=== PATIENT | female | born 1950 | race Caucasian/White ===

== ENCOUNTER 2016-05-06 13:44 | Emergency (ER) | payer MEDICARE, MEDICAID ==
[~2016-05-06] VITALS: Ht 152.4 cm; Wt 45.4 kg
[~2016-05-06 13:44] MED LIST: "\\\"BP MED\\\""; HYDR12.55 PO
[2016-05-06] MEDS ORDERED: IV NS 0.9% 500 ML IV ONE (13:55)
[2016-05-06] MEDS ORDERED: IV SET PRIMARY 1 EA INFUS.SET MC ONE ×2 (13:55→15:44)
[2016-05-06] MEDS ORDERED: IV NS 0.9% 500 ML BAG IV ONE (14:00)
[2016-05-06 14:11] LABS: BASOPHILS % (AUTO) 0.1 % (0.0-2.0); DIFF TOTAL % 100 %; EOSINOPHILS % (AUTO) 0.1 % (0.0-6.0); HEMATOCRIT 31 % (33-45); HEMOGLOBIN 10.9 g/dL (11.5-14.8); LYMPHOCYTES % (AUTO) 5.3 % (20.0-44.0); MEAN CORPUSCULAR HEMOGLOBIN 33 PG (26.0-33.0); MEAN CORPUSCULAR HGB CONC 35 g/dl (31.0-36.0); MEAN CORPUSCULAR VOLUME 97 fL (82-100); MONOCYTES # (AUTO) 1.3 /CMM (0.1-1.30); MONOCYTES % (AUTO) 7.1 % (2.0-12.0); NEUTROPHILS % (AUTO) 87.4 % (43.0-81.0); PLATELET COUNT (AUTO) 215 /CMM (150-450); RED BLOOD CELL COUNT(AUTO) 3.26 MIL/uL (4.0-5.2); WHITE BLOOD COUNT (AUTO) 18.3 K/uL (4.3-11.0)
[2016-05-06 14:20] LABS: ANION GAP 18 (5-14); CALCIUM, SERUM 8.3 mg/dL (8.5-10.1); CARBON DIOXIDE 21 mmol/L (21-32); CHLORIDE 102 mmol/L (98-107); CREATININE 1.7 mg/dL (0.6-1.3); GFR 30 mL/min (>60); GLUCOSE 84 mg/dL (74-106); POTASSIUM 3.9 mmol/L (3.5-5.1); SODIUM SERUM 137 mmol/L (136-145); UREA NITROGEN, BLOOD 42 mg/dL (7-18)
[2016-05-06 14:26] LABS: INR 0.89 (0.87-1.13); PROTHROMBIN TIME 9.3 SECS (9.5-12.7)
[2016-05-06 14:27] LABS: ACETAMINOPHEN < 10 ug/ml (10-30); ALANINE AMINOTRANSFERASE 15 U/L (12-78); ALBUMIN 2.8 g/dL (3.4-5.0); ASPARTATE AMINOTRANSFERASE 22 U/L (15-37); BILIRUBIN,DIRECT 0.1 mg/dL (0.0-0.2); BILIRUBIN,TOTAL 0.2 mg/dL (0.2-1.0); INDIRECT BILIRUBIN 0.1 mg/dL (0.0-1.1); SALICYLATE 1.2 mg/dL (2.8-20.0); TOTAL PROTEIN, SERUM 6.2 g/dL (6.4-8.2); TROPONIN I < 0.017 ng/mL (0.00-0.056)
[2016-05-06 14:49] LABS: THYROID STIMULATING HORMONE 0.152 uIU/mL (0.358-3.74)
[2016-05-06 15:28] LABS: LACTIC ACID 3.2 mmol/L (0.4-2.0)
[2016-05-06 15:39] LABS: *LACTIC ACID REFLEX FLAG YES
[2016-05-06] MEDS ORDERED: IV NS 0.9% 1,000 ML ONE (15:44)
[2016-05-06 15:57] LABS: ADD UA MICROSCOPIC NO; KETONES,URINE NEGATIVE (NEGATIVE); LEUKOCYTE ESTERASE ,URINE NEGATIVE (NEGATIVE); PH,URINE 5.5 (5.0-8.0)
[2016-05-06] MEDS ORDERED: IV NS 0.9% 1,000 ML BAG IV ONE (16:00)
[2016-05-06 16:39] LABS: CANNABINOID, URINE NEGATIVE (NEGATIVE); PHENCYCLIDINE SCREEN,URINE NEGATIVE (NEGATIVE)
[2016-05-06 18:21] VITALS: BP 141/84
[2016-05-06] MEDS ORDERED: ONDANSETRON HCL/PF 4 MG/2 ML VIAL ONE (18:56)
[2016-05-06] MEDS ORDERED: ONDANSETRON HCL/PF - ER 4 MG/2 ML VIAL IV ONE (22:00)
== END 2016-05-06 18:55 ==
LOC: ER 13:45
DX: T51.91XA Toxic effect of unspecified alcohol, accidental (unintentional), initial encounter (principal); I10 Essential (primary) hypertension; F32.9 Major depressive disorder, single episode, unspecified; F10.10 Alcohol abuse, uncomplicated; Y92.9 Unspecified place or not applicable; R79.1 Abnormal coagulation profile
CPT/HCPCS: 36415; 71010-TC; 80048-TC; 80076-TC; 80305; 81000-TC; 83605-TC; 84443-TC; 84484-TC; 85025-TC; 85730-TC; A4606; G6038-TC; G6039-TC; G6040-TC; J2405; J7030; J7040; Z7610

== ENCOUNTER 2019-09-24 19:15 | Emergency (ER) | payer OTHER ==
[~2019-09-24] VITALS: Ht 152.4 cm; Wt 52.6 kg
--- NOTE | 2019-09-24 19:15 | NUR ---
Note undone in EDM - 09/24/19 at 1945 by EVICTOR pt [id number]. ambulatory. bibself c/o L shoulder pain s/p fell yesterday. placed on monitor and pulse ox. md at bedside for eval. no acute distress noted. rr even and unlabored. awaiting md for orders.
--- NOTE | 2019-09-24 19:15 | NUR ---
pt [id number]. ambulatory. bibself c/o R shoulder pain s/p fell yesterday. placed on monitor and pulse ox. md at bedside for eval. no acute distress noted. rr even and unlabored. awaiting md for orders.
[2019-09-24] MEDS ORDERED: FENTANYL PF 100MCG/2ML AMPUL IV ONE (19:30)
[2019-09-24] MEDS ORDERED: FENTANYL PF 100MCG/2ML AMPUL ONE (19:33)
--- NOTE | 2019-09-24 19:37 | NUR ---
xray at bedside
[2019-09-24] MEDS ORDERED: ONDANSETRON HCL/PF 4 MG/2 ML VIAL ONE (20:25)
[2019-09-24] MEDS ORDERED: MORPHINE SULFATE INJ 4 MG/ML DISP.SYRIN ONE (20:26)
[2019-09-24] MEDS ORDERED: ONDANSETRON HCL/PF 4 MG/2 ML VIAL IV ONE (20:30)
[2019-09-24] MEDS ORDERED: MORPHINE SULFATE INJ 2 MG/ML DISP.SYRIN IV ONE (20:30)
--- NOTE | 2019-09-24 20:56 | NUR ---
IV removed. Catheter intact and site benign. Pressure and 4x4 applied to site. No bleeding noted.
--- NOTE | 2019-09-24 20:56 | NUR ---
Patient discharged to home in stable condition. Written and verbal after care instructions given. Patient verbalizes understanding of instruction and RX. Pt picked up by luba. VSS. Ambulated with steady gait.
[2019-09-24 21:07] VITALS: BP 138/76
== END 2019-09-24 21:07 | disposition home or self-care (01) ==
LOC: ER 19:18
DX: S42.211A Unspecified displaced fracture of surgical neck of right humerus, initial encounter for closed fracture (principal); I10 Essential (primary) hypertension; F32.9 Major depressive disorder, single episode, unspecified; G89.29 Other chronic pain; Z79.899 Other long term (current) drug therapy; W01.0XXA Fall on same level from slipping, tripping and stumbling without subsequent striking against object, initial encounter; Y93.89 Activity, other specified; Y92.89 Other specified places as the place of occurrence of the external cause; Y99.8 Other external cause status
CPT/HCPCS: 73030; 96374; 96375; 99284; J2270; J2405; J3010

== ENCOUNTER 2020-09-21 09:23 | Inpatient (IN) | payer OTHER ==
[~2020-09-21] VITALS: Ht 152.4 cm; Wt 46.3 kg
--- NOTE | 2020-09-21 09:23 | NUR ---
PT BIBRA 102 FROM HOME C/O ETOH "COUPLE OF BOTTLES OF VODKA ON SCENE" PT IS AAOX3, NOT IN RESPIRATORY DISTRESS, HOOKED TO DATA CENTER MANAGER, KEPT RESTED AND COMFORTABLE. WILL CONTINUE TO MONITOR.
--- NOTE | 2020-09-21 09:30 | NUR ---
THE PATIENT IS PROVIDED WITH BREAKFAST.
--- NOTE | 2020-09-21 09:57 | NUR ---
SEEN AND EXAMINED BY .
[2020-09-21 10:12] LABS: BASOPHILS # (AUTO) 0.1 /CMM (0.0-0.2); BASOPHILS % (AUTO) 1.7 % (0.0-2.0); EOSINOPHILS % (AUTO) 0.6 % (0.0-6.0); HEMATOCRIT 33 % (33-45); HEMOGLOBIN 10.4 g/dL (11.5-14.8); LYMPHOCYTES # (AUTO) 2.1 /CMM (0.8-4.8); MEAN CORPUSCULAR HGB CONC 31 g/dl (31.0-36.0); MEAN CORPUSCULAR VOLUME 88 fL (82-100); MONOCYTES # (AUTO) 0.2 /CMM (0.1-1.30); MONOCYTES % (AUTO) 4.9 % (2.0-12.0); NEUTROPHILS # (AUTO) 2.3 /CMM (1.8-8.9); NEUTROPHILS % (AUTO) 47.8 % (43.0-81.0); PLATELET COUNT (AUTO) 235 /CMM (150-450); RED BLOOD CELL COUNT(AUTO) 3.77 MIL/uL (4.0-5.2); WHITE BLOOD COUNT (AUTO) 4.8 K/uL (4.3-11.0)
[2020-09-21 10:19] LABS: CARBON DIOXIDE 22 mmol/L (21-32); CHLORIDE 105 mmol/L (98-107); GLUCOSE 92 mg/dL (74-106); POTASSIUM 3.7 mmol/L (3.5-5.1); SODIUM SERUM 145 mmol/L (136-145); UREA NITROGEN, BLOOD 12 mg/dL (7-18)
--- NOTE | 2020-09-21 10:22 | NUR ---
CLOSE FRIEND SHARON GOEL, LEFT CONTACT # [phone]
[2020-09-21 10:26] LABS: ALANINE AMINOTRANSFERASE 33 U/L (12-78); ALBUMIN 3.3 g/dL (3.4-5.0); ALCOHOL, BLOOD 407 mg/dL (0-0); ALKALINE PHOSPHATASE 149 U/L (46-116); ASPARTATE AMINOTRANSFERASE 51 U/L (15-37); BILIRUBIN,DIRECT 0.1 mg/dL (0.0-0.2); BILIRUBIN,TOTAL 0.3 mg/dL (0.2-1.0); CALCIUM, SERUM 8.3 mg/dL (8.5-10.1); TOTAL PROTEIN, SERUM 7.4 g/dL (6.4-8.2)
[2020-09-21 10:27] LABS: ACETAMINOPHEN < 0 ug/ml (10-30)
--- NOTE | 2020-09-21 10:37 | NUR ---
FRIEND SHARON SPOKE TO DR PRIETO REGARDING PT PLAN OF CARE.
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
--- NOTE | 2020-09-21 12:00 | NUR ---
THE PATIENT IS PROVIDED WITH LUNCH. THE PATIENT TOLERATED PROVIDED FOOD WELL.
--- NOTE | 2020-09-21 13:54 | NUR ---
URINE COLLECTED AND SENT TO THE LAB
[2020-09-21 14:13] LABS: BILIRUBIN,URINE Negative (NEGATIVE); COLOR,URINE YELLOW (YELLOW); LEUKOCYTE ESTERASE ,URINE Trace (NEGATIVE); NITRITE, URINE Negative (NEGATIVE); PROTEIN,URINE 100 mg/dl (NEGATIVE); UGLUCOSE Negative (NEGATIVE); UROBILINOGEN,URINE 0.2 EU/dL (0.2)
[2020-09-21 14:17] LABS: BACTERIA,URINE None seen /HPF (None Seen); HYALINE CASTS, URINE Few /LPF (None Seen); RBC,URINE 0-2 /HPF (0-2); SQUAMOUS EPITHELIAL CELL,UR Few /HPF (None Seen)
--- NOTE | 2020-09-21 15:00 | NUR ---
THE PATIENT ALERT AND ORIENTED X2. DENIES PAIN. IN ROOM AIR AND DENIES SOB. RESPIRATION REGULAR AND UNLABORED. WILL CONTINUE TO MONITOR THE PATIENT.
--- NOTE | 2020-09-21 16:05 | NUR ---
CLEMENTE RN AT BEDSIDE FOR PSYCH EVAL.
[2020-09-21] MEDS ORDERED: CEPHALEXIN MONOHYDRATE 500 MG CAPSULE PO ONE (17:06)
[2020-09-21] MEDS: CEPHALEXIN MONOHYDRATE 500 MG CAPSULE PO SCH (17:09)
[2020-09-21] MEDS ORDERED: TRAZ-257 PO (18:22)
[2020-09-21] MEDS ORDERED: OMEP20CA15 PO (18:22)
[2020-09-21] MEDS ORDERED: GABA-532 PO (18:22)
[2020-09-21] MEDS ORDERED: FERR325T24 PO (18:22)
[2020-09-21] MEDS ORDERED: BENA20TA9 PO (18:22)
[2020-09-21] MEDS ORDERED: METO-357 PO (18:22)
--- NOTE | 2020-09-21 19:37 | NUR ---
ATTEMPTED TO GIVE REPORT TO STAFF, UNABLE TO GIVE REPORT. STAFF IS BUSY.
--- NOTE | 2020-09-21 19:45 | NUR ---
REPORT GIVEN TO FAA RN FOR ANGEL. STAFF STATES THAT THE ROOM NEEDS TO BE CLEANED BY EVS BEFORE PATIENT CAN BE SENT UP.
[2020-09-21] MEDS ORDERED: MAG HYDROX/AL HYDROX/SIMETH 30 ML UDC PO PRN (21:30)
[2020-09-21] MEDS ORDERED: ACETAMINOPHEN 325 MG TABLET PO PRN (21:30)
[2020-09-21] MEDS ORDERED: MAGNESIUM HYDROXIDE 30 ML UDC PO PRN (21:30)
[2020-09-21] MEDS ORDERED: BLOOD SUGAR DIAGNOSTIC 1 EACH STRIP IN ONE (21:30)
[2020-09-21] MEDS: ZOLPIDEM TARTRATE 5 MG TABLET PO PRN (21:46)
[2020-09-21] MEDS: LORAZEPAM 0.5 MG TABLET PO PRN (22:34)
[2020-09-22 00:06] VITALS: BP 191/118
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
[2020-09-22] MEDS ORDERED: BENAZEPRIL HCL 20 MG TABLET PO STA (02:43)
[2020-09-22] MEDS ORDERED: METOPROLOL TARTRATE 50 MG TABLET PO STA (02:43)
--- NOTE | 2020-09-22 02:59 | NUR ---
GPS RN NOTE - BP PATIENT NOTED WITH BP 186/95 AND P OF [address]. DR. CAST ORDERED: -METOPROLOL 50MG PO ONCE STAT -HYDRALAZINE 20MG PO ONCE STAT ADMINISTERED MEDICATION AND WILL CONTINUE TO MONITOR PATIENT'S BP -HYDRALAZINE 25MG PO PRN EVERY 6 HOURS FOR SBP > 150. ORDER NOTED AND CARRIED OUT.
[2020-09-22] MEDS ORDERED: hydrALAZINE HCL 25 MG TABLET PO PRN (03:00)
[2020-09-22 06:08] LABS: BASOPHILS # (AUTO) 0.1 /CMM (0.0-0.2); BASOPHILS % (AUTO) 1.1 % (0.0-2.0); EOSINOPHILS % (AUTO) 0.6 % (0.0-6.0); HEMATOCRIT 30 % (33-45); HEMOGLOBIN 9.6 g/dL (11.5-14.8); LYMPHOCYTES # (AUTO) 1.3 /CMM (0.8-4.8); LYMPHOCYTES % (AUTO) 22.2 % (20.0-44.0); MEAN CORPUSCULAR HGB CONC 32 g/dl (31.0-36.0); MEAN CORPUSCULAR VOLUME 87 fL (82-100); MONOCYTES # (AUTO) 0.5 /CMM (0.1-1.30); MONOCYTES % (AUTO) 9.2 % (2.0-12.0); NEUTROPHILS % (AUTO) 66.9 % (43.0-81.0); PLATELET COUNT (AUTO) 184 /CMM (150-450); RED BLOOD CELL COUNT(AUTO) 3.42 MIL/uL (4.0-5.2)
--- NOTE | 2020-09-22 06:20 | NUR ---
GPS RN NOTE SPOKE TO DEJON (NEXT-TO-KIN) AND NOTIFIED THAT PATIENT WAS ADMITTED TO [facility]
--- NOTE | 2020-09-22 06:33 | NUR ---
GPS RN NOTE - CONTRABAND CONTRABAND BROUGHT TO RN [employer] AND LOCKED IN SAFE #[id number]
[2020-09-22 06:34] LABS: CALCIUM, SERUM 8.6 mg/dL (8.5-10.1); CREATININE 1.1 mg/dL (0.6-1.3); POTASSIUM 4.3 mmol/L (3.5-5.1)
[2020-09-22 06:43] LABS: IRON, SERUM 167 ug/dl (50-175); TOTAL IRON BINDING CAPACITY 353 ug/dl (250-450)
[2020-09-22] MEDS ORDERED: CLONIDINE HCL 0.2MG/24H PTWK 1 EA PATCH TD SCH (07:00)
[2020-09-22 07:04] LABS: CHOLESTEROL 227 mg/dL (<200); HDL CHOLESTEROL 116 mg/dL (40-60); LDL 94 mg/dL (0-99); TRIGLYCERIDES 62 mg/dL (30-150)
[2020-09-22 07:53] LABS: THYROID STIMULATING HORMONE 1.015 uIU/mL (0.358-3.74)
--- NOTE | 2020-09-22 07:55 | NUR ---
RN OPENING NOTE PT SLEEPING IN BED. AROUSES TO LIGHT TOUCH. A/O X3. CALM AND COMPLIANT WITH MEDS. COOPERATIVE WITH STAFF. PT DENIES ANY SI/HI/AV/AH AT THIS TIME. PT MOOD IS DEPRESSED WITH FLAT AFFECT. WILL CONTINUE TO MONITOR Q15 FOR SAFETY.
[2020-09-22 08:00] VITALS: BP 134/81
[2020-09-22 08:04] LABS: NT-PRO BNP 565 pg/mL (0-125)
[2020-09-22] MEDS: CEPHALEXIN MONOHYDRATE 500 MG CAPSULE PO SCH ×2 (09:18→16:02)
[2020-09-22] MEDS: METOPROLOL SUCCINATE 50 MG TAB.SR.24H PO SCH (09:19)
[2020-09-22] MEDS: BENAZEPRIL HCL 20 MG TABLET PO SCH (09:19)
[2020-09-22] MEDS: FERROUS SULFATE (325 MG) 325 MG/TAB TABLET PO SCH (09:19)
[2020-09-22] MEDS: CHLORDIAZEPOXIDE HCL 25 MG CAPSULE PO SCH ×2 (11:33→16:03)
[2020-09-22] MEDS: THIAMINE HCL 100 MG TABLET PO SCH (14:03)
[2020-09-22 16:00] VITALS: BP 133/78
[2020-09-22] MEDS: LORAZEPAM 0.5 MG TABLET PO PRN (17:39)
[2020-09-22] MEDS ORDERED: diphenhydrAMINE HCL ELIX 25 MG/10 ML UDC PO PRN (19:00)
[2020-09-22] MEDS ORDERED: methylPREDNISolone DOSPAK(4MG) 1 PACK TAB.DS.PK PO ONE (19:00)
[2020-09-22 20:26] VITALS: BP 131/71
[2020-09-22] MEDS: GABAPENTIN 100 MG CAPSULE PO SCH (21:29)
[2020-09-22] MEDS: ZOLPIDEM TARTRATE 5 MG TABLET PO PRN (21:34)
--- NOTE | 2020-09-22 21:35 | NUR ---
Pt c/o insomnia. Least restrictive measures ineffective. Ambien 5 mg po prn given as ordered. Will continue to monitor.
--- NOTE | 2020-09-22 22:37 | NUR ---
Post 1 hr jerrellien effective. Pt asleep in bed easy to arouse. Will continue to monitor. Frequent visual check done for safety.
[2020-09-23] MEDS ORDERED: methylPREDNISolone (4MG) 4 MG TABLET PO ONE (07:30)
[2020-09-23 08:00] VITALS: BP 120/76
[2020-09-23] MEDS: CHLORDIAZEPOXIDE HCL 25 MG CAPSULE PO SCH ×2 (08:43→16:40)
[2020-09-23] MEDS: BENAZEPRIL HCL 20 MG TABLET PO SCH (08:44)
[2020-09-23] MEDS: THIAMINE HCL 100 MG TABLET PO SCH (08:44)
[2020-09-23] MEDS: METOPROLOL SUCCINATE 50 MG TAB.SR.24H PO SCH (08:44)
[2020-09-23] MEDS: FERROUS SULFATE (325 MG) 325 MG/TAB TABLET PO SCH (08:44)
[2020-09-23] MEDS: MULTIVIT W/MINERALS 1 TAB TABLET PO SCH (08:47)
[2020-09-23] MEDS: SERTRALINE HCL 25 MG TABLET PO SCH (08:47)
[2020-09-23] MEDS: LORAZEPAM 0.5 MG TABLET PO PRN ×3 (10:36→21:28)
[2020-09-23] MEDS ORDERED: methylPREDNISolone (4MG) 4 MG TABLET (DAY #1, PC LUNCH) PO ONE (12:30)
[2020-09-23 16:00] VITALS: BP 113/77
[2020-09-23] MEDS ORDERED: methylPREDNISolone (4MG) 4 MG TABLET (DAY #1 PC DINNER) PO ONE (17:30)
[2020-09-23 20:00] VITALS: BP 98/54
[2020-09-23] MEDS: GABAPENTIN 100 MG CAPSULE PO SCH (21:27)
[2020-09-23] MEDS ORDERED: methylPREDNISolone (4MG) 4 MG TABLET (DAY1,HS) PO ONE (22:00)
[2020-09-24] MEDS ORDERED: methylPREDNISolone (4MG) 4 MG TABLET (DAY#2 ACB) PO ONE (07:30)
[2020-09-24 08:00] VITALS: BP 118/90
[2020-09-24 08:38] VITALS: BP 118/90
[2020-09-24] MEDS: SERTRALINE HCL 25 MG TABLET PO SCH (08:38)
[2020-09-24] MEDS: METOPROLOL SUCCINATE 50 MG TAB.SR.24H PO SCH (08:38)
[2020-09-24] MEDS: MULTIVIT W/MINERALS 1 TAB TABLET PO SCH (08:38)
[2020-09-24] MEDS: FERROUS SULFATE (325 MG) 325 MG/TAB TABLET PO SCH (08:38)
[2020-09-24] MEDS: THIAMINE HCL 100 MG TABLET PO SCH (08:38)
[2020-09-24] MEDS: BENAZEPRIL HCL 20 MG TABLET PO SCH (08:38)
[2020-09-24] MEDS: CHLORDIAZEPOXIDE HCL 25 MG CAPSULE PO SCH (08:38)
--- NOTE | 2020-09-24 11:00 | NUR ---
gps face burler: psych f/u seen by dr. weller and pt refusing to stay voluntary, pt wants to go against medical advice. pt denied si/hi. pt to call a friend (kelsey) to pick her up, just waiting for her phone to be charged. pt understands the risks and consequences involving leaving the hospital at this time. pt signed ama form and d'c instructions. advice pt to follow up with mental health clinic as needed and to follow up with primary care physician as soon as possible. pt verbalized understanding.
--- NOTE | 2020-09-24 11:32 | NUR ---
Discharge Note: Pt will be discharged against medical advice (AMA) to her home located at [address] [place] [address]. Pt will call a Lyft at the time of her discharge. Upon discharge, pt appears to be in a euthymic mood and presents with a distressed affect. Pt appears to be alert and oriented x4 (time, place, self and situation). Pt denies suicidal and homicidal ideation and denied visual and auditory hallucinations. Pt appears to be groomed and appropriately dressed. Pt appears to be ambulatory with an unsteady gait. Pt will follow up with her own outpatient providers and will make her own appointments since she is leaving AMA. The multidisciplinary exit care form was done, printed, signed, and given to the patient.
--- NOTE | 2020-09-24 12:09 | NUR ---
UR Note: KATIE faxed a discharge clinical to Kristin to the fax number: [phone].
[2020-09-24] MEDS ORDERED: methylPREDNISolone (4MG) 4 MG TABLET (DAY#2,PC LUNCH) PO ONE (12:30)
--- NOTE | 2020-09-24 14:40 | NUR ---
gps insurance sales specialist: notes friend (verenice) and alaina (niece) can't pick the pt. pt wants to try to arrange uber with her friend verenice as stated. raphael ([email or web address].) aware. awaiting for friend to arrange uber. pt denies si/hi at this time. needs attended. snacks provided.
--- NOTE | 2020-09-24 15:15 | NUR ---
gps yard conductor: notes verenice (friend) called her once more and provided a lyft to pick her up. valuables returned to pt. pt denied si/hi at this time. study manager escorted her out of the unit via wheelchair and pt got in safely in a car.
[2020-09-24] MEDS ORDERED: methylPREDNISolone (4MG) 4 MG TABLET (DAY#2, PC DINNER) PO ONE (17:30)
[2020-09-24] MEDS ORDERED: methylPREDNISolone (4MG) 4 MG TABLET (DAY#2, HS) PO ONE (21:00)
[2020-09-25] MEDS ORDERED: methylPREDNISolone (4MG) 4 MG TABLET (DAY#3,ACB) PO ONE (07:30)
[2020-09-25] MEDS ORDERED: methylPREDNISolone (4MG) 4 MG TABLET (DAY#3,PC LUNCH) PO ONE (12:30)
[2020-09-25] MEDS ORDERED: methylPREDNISolone (4MG) 4 MG TABLET (DAY#3,PC DINNER) PO ONE (17:30)
[2020-09-25] MEDS ORDERED: methylPREDNISolone (4MG) 4 MG TABLET (DAY#3, HS) PO ONE (22:00)
[2020-09-26] MEDS ORDERED: methylPREDNISolone (4MG) 4 MG TABLET (DAY #4, ACB) PO ONE (07:30)
[2020-09-26] MEDS ORDERED: methylPREDNISolone (4MG) 4 MG TABLET (DAY #4, PC LUNCH) PO ONE (12:30)
[2020-09-26] MEDS ORDERED: methylPREDNISolone (4MG) 4 MG TABLET (DAY#4 HS) PO ONE (22:00)
[2020-09-27] MEDS ORDERED: methylPREDNISolone (4MG) 4 MG TABLET (DAY#5, ACB) PO ONE (07:30)
[2020-09-27] MEDS ORDERED: methylPREDNISolone (4MG) 4 MG TABLET (DAY#5,HS) PO ONE (22:00)
[2020-09-28] MEDS ORDERED: methylPREDNISolone (4MG) 4 MG TABLET (DAY#6,ACB) PO ONE (07:30)
== END 2020-09-24 15:15 | disposition left against medical advice (07) | DRG 881 ==
LOC: ER 09:25 → GPS 19:02
PROVIDERS: ADMIT Psychiatry & Neurology Psychiatry; ATTEND Student in an Organized Health Care Education/Training Program
DX: F32.9 Major depressive disorder, single episode, unspecified (principal); F10.229 Alcohol dependence with intoxication, unspecified; E44.1 Mild protein-calorie malnutrition; F10.239 Alcohol dependence with withdrawal, unspecified; Z68.1 Body mass index [BMI] 19.9 or less, adult; I10 Essential (primary) hypertension; D64.9 Anemia, unspecified; G89.29 Other chronic pain; Z20.822 Contact with and (suspected) exposure to COVID-19; Y90.8 Blood alcohol level of 240 mg/100 ml or more; R22.9 Localized swelling, mass and lump, unspecified; T36.1X5A Adverse effect of cephalosporins and other beta-lactam antibiotics, initial encounter; Y92.230 Patient room in hospital as the place of occurrence of the external cause
CPT/HCPCS: 36415; 71045-TC; 80048-TC; 80061-TC; 80076-TC; 81001; 82962-TC; 83540-TC; 83880; 84443-TC; 84484-TC; 85025-TC; 87081-TC; 87086-TC; 92526; 92611-TC; C9803; G0480; J7509